=== PATIENT | male | born 1975 | race Caucasian/White ===

== ENCOUNTER → 2023-02-16 15:36 | Outpatient (CLI) | payer OTHER, SELFPAY ==
--- NOTE | 2023-02-16 15:41 | XR_ITS ---
FINAL REPORT CLINICAL HISTORY: Left anterior rib pain COMPARISON: None FINDINGS: A single view of the chest with 3 views of the left ribs were obtained. There is no acute cardiopulmonary process. No pneumothorax is identified. No displaced rib fracture identified. IMPRESSION: No acute process. Reviewed, Interpreted and Dictated by Alexander Lopez MD Transcribed by Joyce Vasquez Authenticated and [facility]
== END ==
PROVIDERS: PCP Internal Medicine Adolescent Medicine; Visit Provider Physician Assistant
DX: R07.81 Pleurodynia (principal)
CPT/HCPCS: 71100; 71101